=== PATIENT | female | born 2000 | race African-American/Black ===

== ENCOUNTER 2020-08-16 14:44 | Emergency (ER) | payer BC ==
[~2020-08-16] VITALS: Ht 157.5 cm; Wt 49.9 kg
[2020-08-16] MEDS ORDERED: PRENATABS FA T1 EACH (14:50)
== END 2020-08-16 20:29 | disposition home or self-care (01) ==
LOC: ER 14:44
DX: O99.411 Diseases of the circulatory system complicating pregnancy, first trimester (principal); I49.8 Other specified cardiac arrhythmias; O26.891 Other specified pregnancy related conditions, first trimester; R07.89 Other chest pain; Z03.818 Encounter for observation for suspected exposure to other biological agents ruled out; Z3A.01 Less than 8 weeks gestation of pregnancy

== ENCOUNTER 2021-01-22 11:42 | Outpatient (CLI) | payer OTHER ==
[~2021-01-22 11:42] MED LIST: PRENATABS FA T1 EACH
== END 2021-01-22 12:00 | disposition home or self-care (01) ==
LOC: NST 11:42
PROVIDERS: ATTEND Obstetrics & Gynecology Maternal & Fetal Medicine
DX: Z34.83 Encounter for supervision of other normal pregnancy, third trimester (principal)

== ENCOUNTER 2021-01-29 13:27 | Outpatient (CLI) | payer OTHER | END 2021-01-29 14:21 | disposition home or self-care (01) | LOC: NST 13:27 | PROVIDERS: ATTEND Obstetrics & Gynecology Maternal & Fetal Medicine | DX: O30.093 Twin pregnancy, unable to determine number of placenta and number of amniotic sacs, third trimester (principal) ==

== ENCOUNTER 2021-02-12 13:51 | Outpatient (CLI) | payer OTHER, BC | END 2021-02-12 14:32 | disposition home or self-care (01) | LOC: NST 13:51 | PROVIDERS: ATTEND Obstetrics & Gynecology Maternal & Fetal Medicine | DX: Z34.83 Encounter for supervision of other normal pregnancy, third trimester (principal) ==

== ENCOUNTER 2021-02-25 10:09 | Outpatient (CLI) | payer OTHER, BC | END 2021-02-25 10:34 | disposition home or self-care (01) | LOC: NST 10:09 | PROVIDERS: ATTEND Obstetrics & Gynecology Maternal & Fetal Medicine | DX: O30.003 Twin pregnancy, unspecified number of placenta and unspecified number of amniotic sacs, third trimester (principal) ==

== ENCOUNTER 2021-02-27 09:12 | Outpatient (CLI) | payer OTHER, BC | END 2021-02-27 09:55 | disposition home or self-care (01) | LOC: NST 09:12 | PROVIDERS: ATTEND Obstetrics & Gynecology Maternal & Fetal Medicine | DX: O30.003 Twin pregnancy, unspecified number of placenta and unspecified number of amniotic sacs, third trimester (principal) ==

== ENCOUNTER 2021-03-03 09:12 | Outpatient (CLI) | payer OTHER, BC | END 2021-03-03 09:54 | disposition home or self-care (01) | LOC: NST 09:12 | PROVIDERS: ATTEND Obstetrics & Gynecology Maternal & Fetal Medicine | DX: Z34.83 Encounter for supervision of other normal pregnancy, third trimester (principal) ==

== ENCOUNTER 2021-03-06 10:49 | Inpatient (IN) | payer OTHER, BC ==
[~2021-03-06] VITALS: Ht 157.5 cm; Wt 1.4 kg
[2021-03-07] MEDS ORDERED: NIFEDIPINE ER30 M1 (14:13)
== END 2021-03-09 13:27 | disposition home or self-care (01) | DRG 786 ==
LOC: NST 10:49 → LDR 11:33 → O/R 18:59 → OB/GYN 21:42
PROVIDERS: ADMIT Obstetrics & Gynecology; ATTEND Obstetrics & Gynecology
PROC: 10907ZC Drainage of Amniotic Fluid, Therapeutic from Products of Conception, Via Natural or Artificial Opening (ICD-10-PCS; 2021-03-06)
PROC: 3E033VJ Introduction of Other Hormone into Peripheral Vein, Percutaneous Approach (ICD-10-PCS; 2021-03-06)
PROC: 4A1HXFZ Monitoring of Products of Conception, Cardiac Rhythm, External Approach (ICD-10-PCS; 2021-03-06)
PROC: 10D00Z1 Extraction of Products of Conception, Low, Open Approach (ICD-10-PCS; principal; 2021-03-06 18:00)
DX: O61.0 Failed medical induction of labor (principal); O60.14X2 Preterm labor third trimester with preterm delivery third trimester, fetus 2; O60.14X1 Preterm labor third trimester with preterm delivery third trimester, fetus 1; O30.043 Twin pregnancy, dichorionic/diamniotic, third trimester; Z3A.36 36 weeks gestation of pregnancy; Z37.2 Twins, both liveborn